=== PATIENT | female | born 1955 | race Hispanic/Latino ===

== ENCOUNTER 2018-01-25 10:30 | Emergency (ER) | payer SELFPAY ==
[~2018-01-25] VITALS: Ht 165.1 cm; Wt 110.6 kg
[~2018-01-25 10:30] MED LIST: LORTAB 5/3255 MG PO; NO HOME MEDS; TORADOL PO; ULTRAM50 MG OR; ZOFRAN ODT4 MG PO; [UNRECOGNIZED DRUG - REMARK]
[2018-01-25] MEDS ORDERED: BACTRIM DS1 TAB PO (11:27)
[2018-01-25] MEDS ORDERED: OMNI-PAC300 MG PO (11:27)
[2018-01-25 12:06] VITALS: BP 130/60
== END 2018-01-25 12:00 | disposition home or self-care (01) | DRG 153 ==
LOC: ED 10:30
PROC: 0H91XZZ Drainage of Face Skin, External Approach (ICD-10-PCS; principal; 2018-01-25)
DX: H70.002 Acute mastoiditis without complications, left ear (principal); R50.9 Fever, unspecified; R51 Headache

== ENCOUNTER 2018-01-27 14:05 | Emergency (ER) | payer SELFPAY ==
[~2018-01-27] VITALS: Ht 165.1 cm; Wt 106.0 kg
[~2018-01-27 14:05] MED LIST changes: +BACTRIM DS1 TAB PO; +OMNI-PAC300 MG PO
[2018-01-27 14:45] VITALS: BP 145/87
== END 2018-01-27 14:45 | disposition home or self-care (01) | DRG 951 ==
LOC: ED 14:05
DX: Z48.01 Encounter for change or removal of surgical wound dressing (principal)

== ENCOUNTER 2018-01-29 13:41 | Emergency (ER) | payer SELFPAY ==
[~2018-01-29] VITALS: Ht 165.1 cm; Wt 120.0 kg
[2018-01-29 14:51] VITALS: BP 145/77
== END 2018-01-29 14:55 | disposition home or self-care (01) | DRG 951 ==
LOC: ED 13:41
DX: Z48.01 Encounter for change or removal of surgical wound dressing (principal); E11.9 Type 2 diabetes mellitus without complications

== ENCOUNTER 2018-01-31 13:41 | Emergency (ER) | payer SELFPAY ==
[~2018-01-31] VITALS: Ht 165.1 cm; Wt 109.1 kg
[2018-01-31 14:10] VITALS: BP 132/89
== END 2018-01-31 14:10 | disposition home or self-care (01) | DRG 951 ==
LOC: ED 13:41
DX: Z48.01 Encounter for change or removal of surgical wound dressing (principal)

== ENCOUNTER 2018-02-02 14:19 | Emergency (ER) | payer SELFPAY ==
[~2018-02-02] VITALS: Ht 165.1 cm; Wt 100.0 kg
[2018-02-02 14:50] VITALS: BP 134/74
== END 2018-02-02 14:50 | disposition home or self-care (01) | DRG 951 ==
LOC: ED 14:19
DX: Z48.01 Encounter for change or removal of surgical wound dressing (principal); E11.9 Type 2 diabetes mellitus without complications

== ENCOUNTER 2018-02-06 09:50 | Emergency (ER) | payer SELFPAY ==
[~2018-02-06] VITALS: Ht 165.1 cm; Wt 120.0 kg
[2018-02-06] MEDS ORDERED: UNDE (10:07)
[2018-02-06 10:25] VITALS: BP 128/71
== END 2018-02-06 10:25 | disposition home or self-care (01) | DRG 951 ==
LOC: ED 09:50
DX: Z48.01 Encounter for change or removal of surgical wound dressing (principal)

== ENCOUNTER 2018-03-09 06:16 | Emergency (ER) | payer SELFPAY ==
[~2018-03-09] VITALS: Ht 165.1 cm; Wt 114.0 kg
[~2018-03-09 06:16] MED LIST changes: +UNDE
[2018-03-09] MEDS ORDERED: CIPROFLOXACN500 MG PO (08:48)
[2018-03-09] MEDS ORDERED: CEPHALEXIN500 M1 PO (08:48)
[2018-03-09 08:55] VITALS: BP 141/79
[2018-03-10] MEDS ORDERED: HUMULIN 70/30 SC (08:19)
[2018-03-10] MEDS ORDERED: BACTRIM DS1 TAB PO (08:31)
== END 2018-03-09 08:55 | disposition home or self-care (01) | DRG 603 ==
LOC: ED 06:16
PROC: 0H94XZZ Drainage of Neck Skin, External Approach (ICD-10-PCS; principal; 2018-03-09)
DX: L02.11 Cutaneous abscess of neck (principal); B95.7 Other staphylococcus as the cause of diseases classified elsewhere; E11.9 Type 2 diabetes mellitus without complications

== ENCOUNTER 2018-03-10 08:07 | Emergency (ER) | payer SELFPAY ==
[~2018-03-10] VITALS: Ht 165.1 cm; Wt 100.0 kg
[~2018-03-10 08:07] MED LIST changes: +CEPHALEXIN500 M1 PO; +CIPROFLOXACN500 MG PO
[2018-03-10] MEDS ORDERED: HUMULIN 70/30 SC (08:19)
[2018-03-10] MEDS ORDERED: BACTRIM DS1 TAB PO (08:31)
[2018-03-10 08:42] VITALS: BP 148/91
== END 2018-03-10 08:40 | disposition home or self-care (01) | DRG 951 ==
LOC: ED 08:07
DX: Z48.01 Encounter for change or removal of surgical wound dressing (principal)

== ENCOUNTER 2018-03-12 08:41 | Emergency (ER) | payer SELFPAY ==
[~2018-03-12] VITALS: Ht 165.1 cm; Wt 112.7 kg
[~2018-03-12 08:41] MED LIST changes: +HUMULIN 70/30 SC
[2018-03-12 09:09] VITALS: BP 144/85
== END 2018-03-12 09:28 | disposition home or self-care (01) | DRG 951 ==
LOC: ED 08:41
DX: Z48.01 Encounter for change or removal of surgical wound dressing (principal); E11.9 Type 2 diabetes mellitus without complications

== ENCOUNTER 2018-03-16 14:05 | Emergency (ER) | payer SELFPAY ==
[~2018-03-16] VITALS: Ht 165.1 cm; Wt 111.0 kg
[2018-03-16 14:45] VITALS: BP 147/78
== END 2018-03-16 14:45 | disposition home or self-care (01) | DRG 951 ==
LOC: ED 14:05
DX: Z48.01 Encounter for change or removal of surgical wound dressing (principal)

== ENCOUNTER 2018-03-19 05:22 | Emergency (ER) | payer SELFPAY ==
[~2018-03-19] VITALS: Ht 165.1 cm; Wt 115.0 kg
[2018-03-19 05:53] VITALS: BP 126/68
== END 2018-03-19 06:03 | disposition home or self-care (01) | DRG 951 ==
LOC: ED 05:22
DX: Z48.01 Encounter for change or removal of surgical wound dressing (principal)

== ENCOUNTER 2018-03-24 04:56 | Emergency (ER) | payer SELFPAY ==
[~2018-03-24] VITALS: Ht 165.1 cm; Wt 114.0 kg
[2018-03-24] MEDS ORDERED: BACTRIM DS1 TAB PO (05:28)
[2018-03-24 05:30] VITALS: BP 121/64
== END 2018-03-24 05:35 | disposition home or self-care (01) | DRG 951 ==
LOC: ED 04:56
DX: Z48.01 Encounter for change or removal of surgical wound dressing (principal); E11.9 Type 2 diabetes mellitus without complications